=== PATIENT | female | born 1965 | race Two or more races ===

== ENCOUNTER 2023-12-04 17:55 | Emergency (ER) | payer OTHER ==
[~2023-12-04] VITALS: Ht 170.2 cm; Wt 202.8 kg
[2023-12-04] MEDS ORDERED: OMEP20TA5 PO (18:27)
[2023-12-04] MEDS ORDERED: BENA40TA8 PO (18:27)
[2023-12-04] MEDS ORDERED: METO-358 PO (18:27)
[2023-12-04] MEDS ORDERED: ATOR40TA PO (18:27)
[2023-12-04] MEDS ORDERED: METF-440 PO (18:27)
[2023-12-04] MEDS ORDERED: LEVO100T10 PO (18:27)
[2023-12-04 19:13] LABS: BASOPHILS % (AUTO) 0.1 % (0.0-2.0); EOSINOPHILS # (AUTO) 0.1 K/uL (0.0-0.7); EOSINOPHILS % (AUTO) 0.4 % (0.0-7.0); HEMOGLOBIN 12.5 g/dL (10.9-14.3); LYMPHOCYTES # (AUTO) 1.2 K/uL (0.8-4.8); LYMPHOCYTES % (AUTO) 8.1 % (20.5-51.5); MEAN CORPUSCULAR HEMOGLOBIN 29.5 uug (24.7-32.8); MEAN CORPUSCULAR HGB CONC 33 g/dL (32.3-35.6); MEAN CORPUSCULAR VOLUME 89.6 fL (75.5-95.3); MONOCYTES # (AUTO) 0.8 K/uL (0.1-1.30); MONOCYTES % (AUTO) 5.4 % (0.0-11.0); NEUTROPHILS # (AUTO) 13.2 K/uL (1.8-8.9); PLATELET COUNT (AUTO) 288 K/uL (179-408); RED BLOOD CELL COUNT(AUTO) 4.24 MIL/uL (3.63-4.92); RED CELL DISTRIBUTION WIDTH 13.4 % (12.3-17.7); WHITE BLOOD COUNT (AUTO) 15.3 K/uL (3.8-11.8)
[2023-12-04 19:15] LABS: DIFFERENTIAL COMMENT 1
[2023-12-04 19:23] LABS: CALCIUM 8.5 mg/dL (8.5-10.1); CREATININE 1.1 mg/dL (0.6-1.3); POTASSIUM 3.4 mmol/L (3.5-5.1)
[2023-12-04 19:35] LABS: ALBUMIN 3.5 g/dL (3.4-5.0); BILIRUBIN,TOTAL 0.9 mg/dL (0.2-1.0); TOTAL PROTEIN, SERUM 7.2 g/dL (6.4-8.2)
[2023-12-04] MEDS ORDERED: PANTOPRAZOLE SODIUM 40 MG VIAL ONE (19:52)
[2023-12-04] MEDS ORDERED: ONDANSETRON 4 MG/2 ML VIAL ONE (19:52)
[2023-12-04] MEDS: ONDANSETRON 4 MG/2 ML VIAL IV ONE (20:05)
[2023-12-04] MEDS: IV NS 1000 ML 1,000 ML IV ONE (20:05)
[2023-12-04] MEDS: PANTOPRAZOLE SODIUM 40 MG VIAL IV ONE (20:05)
[2023-12-04] MEDS ORDERED: POTASSIUM CHLORIDE 50 ML ONE (22:57)
[2023-12-04] MEDS ORDERED: levoFLOXacin 500 MG/D5W 100 ML ONE (22:57)
[2023-12-04] MEDS: levoFLOXacin 500 MG/D5W 100ML PIGGYBACK IV ONE (23:00)
[2023-12-04] MEDS: POTASSIUM CHLORIDE 50 ML IV SCH (23:30)
[2023-12-05 03:45] VITALS: O2SAT 96
== END 2023-12-05 04:15 | disposition short-term general hospital (02) ==
LOC: ER 18:02
DX: K52.9 Noninfective gastroenteritis and colitis, unspecified (principal); E78.5 Hyperlipidemia, unspecified; J45.909 Unspecified asthma, uncomplicated; G51.0 Bell's palsy; K21.9 Gastro-esophageal reflux disease without esophagitis; E11.9 Type 2 diabetes mellitus without complications; E03.9 Hypothyroidism, unspecified; E66.9 Obesity, unspecified; Z68.45 Body mass index [BMI] 70 or greater, adult; Z79.84 Long term (current) use of oral hypoglycemic drugs; Z79.890 Hormone replacement therapy; Z20.822 Contact with and (suspected) exposure to COVID-19; Z79.899 Other long term (current) drug therapy
CPT/HCPCS: 99285; 74176; 96365; 96375; 71045; 96361; 87426; 82270; 80053; 83880; 83690; 85025; 87040; 84484; 93005; J1956; J2405; J2470; J3480; J7040 ×2; 36415; A4606; A4663